=== PATIENT | female | born 1950 | race Two or more races ===

== ENCOUNTER 2019-09-24 14:27 | Outpatient (CLI) | payer OTHER | END 2019-09-24 14:40 | disposition home or self-care (01) | LOC: RAD 14:27 | DX: M79.641 Pain in right hand (principal) ==

== ENCOUNTER → 2019-10-06 06:51 | Outpatient (CLI) | payer OTHER | END | disposition home or self-care (01) | LOC: LAB 06:51 | DX: M85.88 Other specified disorders of bone density and structure, other site (principal); E55.9 Vitamin D deficiency, unspecified; E21.2 Other hyperparathyroidism; E88.89 Other specified metabolic disorders; M81.8 Other osteoporosis without current pathological fracture; E56.1 Deficiency of vitamin K ==

== ENCOUNTER 2019-10-06 10:24 | Outpatient (CLI) | payer OTHER | END 2019-10-06 10:55 | disposition home or self-care (01) | LOC: NUCLEAR 10:24 | DX: M81.0 Age-related osteoporosis without current pathological fracture (principal) ==